=== PATIENT | male | born 1970 | race Caucasian/White ===

== ENCOUNTER 2019-02-19 11:26 | Emergency (ER) | payer OTHER ==
[~2019-02-19] VITALS: Ht 170.2 cm; Wt 93.0 kg
[2019-02-19 11:28] VITALS: Ht 170.2 cm; Wt 93.0 kg
[2019-02-19 13:37] VITALS: BP 145/78
== END 2019-02-19 13:37 | disposition home or self-care (01) ==
LOC: ED 11:26
DX: S46.311A Strain of muscle, fascia and tendon of triceps, right arm, initial encounter (principal); W18.30XA Fall on same level, unspecified, initial encounter; Y93.89 Activity, other specified; Y92.89 Other specified places as the place of occurrence of the external cause; Y99.8 Other external cause status
CPT/HCPCS: Q0092